=== PATIENT | female | born 2000 | race Caucasian/White ===

== ENCOUNTER 2021-07-10 06:08 | Inpatient (IN) | payer OTHER ==
[2021-07-10 08:43] VITALS: BMI 36.6
[2021-07-10] MEDS ORDERED: DEXTROSE 5%-LACTATED RINGERS 1,000 ML IV SCH (08:45)
[2021-07-10] MEDS ORDERED: CITRIC ACID/SODIUM CITRATE 30 ML UNIT-DOSE CUP PO ONE (08:45)
[2021-07-10] MEDS ORDERED: ONDANSETRON 4 MG/2 ML VIAL IVPUSH PRN (08:56)
[2021-07-10] MEDS ORDERED: morphine SULFATE/PF 1 MG/2 ML (2cc Syringe - QUVA) EP ONE (08:56)
[2021-07-10] MEDS ORDERED: ePHEDrine SULFATE 50 MG/1 ML AMPULE ONE (09:00)
[2021-07-10] MEDS ORDERED: morphine SULFATE/PF 1 MG/2 ML (2cc Syringe - QUVA) ONE (09:00)
[2021-07-10] MEDS ORDERED: OXYTOCIN 20 UNITS in 0.9% NS 20 UNIT/1,000 ML INFUS.BAG IV ONE (10:17)
[2021-07-10] MEDS ORDERED: KETOROLAC TROMETHAMINE 30 MG/1 ML VIAL ONE (10:30)
[2021-07-10] MEDS ORDERED: ONDANSETRON 4 MG/2 ML VIAL ONE (10:30)
[2021-07-10] MEDS ORDERED: ceFAZolin SODIUM 1 GM VIAL ONE (10:30)
[2021-07-10] MEDS ORDERED: OXYTOCIN 10 UNITS/ML VIAL ONE ×2 (10:30)
[2021-07-10] MEDS ORDERED: DEXAMETHASONE SOD PHOSPHATE 4 MG/1 ML VIAL ONE (10:30)
[2021-07-10 10:38] LABS: CORD HCO3 22.9 mmHg (20-29); CORD PCO2 59.1 mmHg (30-78); CORD pH 7.206 (7.14-7.44)
[2021-07-10 10:40] LABS: CORD BASE EXCESS -5.4 mmol/L (0-2); CORD HCO3 21.7 mmHg (20-29); CORD PCO2 47.6 mmHg (30-78); CORD pH 7.277 (7.14-7.44)
[2021-07-10] MEDS: OXYTOCIN 20 UNITS in 0.9% NS 20 UNIT/1,000 ML INFUS.BAG IV SCH (10:40)
[2021-07-10] MEDS ORDERED: ACETAMINOPHEN 325 MG TABLET (FP) PO PRN (11:12)
[2021-07-10] MEDS ORDERED: SIMETHICONE 80 MG TAB.CHEW (FP) PO PRN (11:12)
[2021-07-10] MEDS ORDERED: IBUPROFEN 600 MG TABLET (FP) PO PRN (11:12)
[2021-07-10] MEDS: FERROUS SO4 325 MG TABLET (FP) PO SCH (17:41)
[2021-07-10] MEDS ORDERED: oxyCODONE HCL 5 MG TABLET PO PRN (23:12)
[2021-07-11] MEDS: OXYTOCIN 20 UNITS in 0.9% NS 20 UNIT/1,000 ML INFUS.BAG IV SCH (01:56)
[2021-07-11] MEDS: PRENATAL VITAMINS W/ FOLIC ACID TABLET (FP) PO SCH (09:14)
[2021-07-11] MEDS: FERROUS SO4 325 MG TABLET (FP) PO SCH ×2 (09:14→17:25)
[2021-07-11 09:52] LABS: BASO % 0.2 % (0-2.0); EOS % 0.4 % (0-4.5); HEMOGLOBIN 10.4 GM/dL (10.7-15.3); LYMPH % 11.6 % (8-40); MCH 30.9 pg (25.7-33.7); MCHC 34.7 g/dl (32.0-36.0); MEAN CELL VOLUME 88.9 fl (80-96); MEAN PLT VOLUME 8.1 fl (7.5-11.1); MONO % 3.6 % (3.8-10.2); NEUT % 84.2 % (42.8-82.8); PLATELET COUNT 237 10^3/uL (134-434); RBC 3.37 M/mm3 (3.60-5.2); RDW 13.3 % (11.6-15.6); WHITE BLOOD COUNT 9.6 K/mm3 (4.0-10.0)
[2021-07-11] MEDS ORDERED: BISACODYL 10 MG SUPP.RECT RC PRN (11:12)
[2021-07-12] MEDS: FERROUS SO4 325 MG TABLET (FP) PO SCH ×2 (08:41→17:00)
[2021-07-12] MEDS: PRENATAL VITAMINS W/ FOLIC ACID TABLET (FP) PO SCH (09:44)
[2021-07-12 10:29] VITALS: BP 133/79; PULSE 90; TEMP 98.3
== END 2021-07-12 18:30 | disposition home or self-care (01) | DRG 540 ==
LOC: JLDR 06:08 → J3W 12:16
PROVIDERS: ADMIT Obstetrics & Gynecology Maternal & Fetal Medicine; ATTEND Obstetrics & Gynecology Maternal & Fetal Medicine
PROC: 10D00Z1 Extraction of Products of Conception, Low, Open Approach (ICD-10-PCS; principal; 2021-07-10)
DX: O32.1XX0 Maternal care for breech presentation, not applicable or unspecified (principal); Z3A.39 39 weeks gestation of pregnancy; Z37.0 Single live birth
CPT/HCPCS: 36415; 36600; 82803; 82962; 85025; 88307-TC